=== PATIENT | female | born 1950 | race Two or more races ===

== ENCOUNTER 2018-09-07 09:45 | Inpatient (IN) | payer OTHER ==
[~2018-09-07] VITALS: Ht 160 cm; Wt 64.4 kg
[2018-09-07] MEDS ORDERED: COZAAR50 MG PO (11:38)
[2018-09-07] MEDS ORDERED: LIPITOR20 MG (12:12)
[2018-09-16] MEDS ORDERED: OMEPRAZOLE20 MG PO (12:36)
[2018-09-16] MEDS ORDERED: INTESTINEX680 M1 PO (12:36)
[2018-09-16] MEDS ORDERED: PERCOCET 5-3251 EACH PO (12:36)
== END 2018-09-16 14:02 | disposition home or self-care (01) | DRG 331 ==
LOC: O/R 09-13 06:00 → SURH 09-13 06:00
PROVIDERS: ADMIT Surgery
PROC: 07TB4ZZ Resection of Mesenteric Lymphatic, Percutaneous Endoscopic Approach (ICD-10-PCS; 2018-09-13)
PROC: 0DTK4ZZ Resection of Ascending Colon, Percutaneous Endoscopic Approach (ICD-10-PCS; principal; 2018-09-13 07:00)
DX: D12.2 Benign neoplasm of ascending colon (principal); R59.0 Localized enlarged lymph nodes; K59.09 Other constipation; I10 Essential (primary) hypertension